=== PATIENT | male | born 1955 | race Caucasian/White ===

== ENCOUNTER 2019-09-10 11:41 | Emergency (ER) | payer OTHER, SELFPAY ==
[2019-09-10 11:44] VITALS: BP 166/86; PULSE 70; RESP 16; TEMP 36.8; O2SAT 99
--- NOTE | 2019-09-10 12:19 | ED.EYEPROB ---
HPI - Eye Problem General Chief complaint: Eye Problems Stated complaint: eye issue Time Seen by Provider: 09/10/19 12:14 Source: patient and family Mode of arrival: ambulatory Limitations: no limitations History of Present Illness HPI Narrative: A 64 y/o male pt presents to the ED, with c/o lt eye pain that began this morning when he woke up. Pt states that when he went to bed last night it was fine and upon waking up he felt an intermittent dull ache above his lt eye that has now migrated into his lt eye. He states that he has a cataract in his lt eye and that he has not had vision in this eye for 15 years, but he is able to detect light. He notes that when the pain first began, he noticed a flickering of light in the corner of his lt eye that occurred about 7 times. Family at bedside states that the eye looks more red and swollen than normal. Pt denies getting anything in his eye, however he states that his lt eye feels irritated. He notes that he feels nauseous, but denies any new onset of cough, tinnitus, rhinorrhea, sore throat, fever or any recent illness. Pt states that it has been several years since he last saw an dressmaker or tailor. chief complaint: eye pain Onset (ago): hour(s) Onset description: awoke with symptoms Duration: intermittent Location: left eye Eye Symptoms: redness and pain Place: home Mechanism: none Severity: severe If Pain, Quality: aching (dull) Context: other (cataract, loss of vision in lt eye x 15 years) Associated symptoms: other (nausea) Related Data Home Medications Medication Instructions Recorded Confirmed allopurinol 09/10/19 aspirin 325 mg PO DAILY 09/10/19 atorvastatin 09/10/19 famotidine 09/10/19 metoprolol succinate PO 09/10/19 potassium citrate PO 09/10/19 propylthiouracil 09/10/19 09/10/19 Allergies Allergy/AdvReac Type Severity Reaction Status Date / Time No Known Allergies Allergy Verified 09/10/19 11:47 Review of Systems Review of Systems: All systems reviewed & are unremarkable except as noted in HPI and below Constitutional: Constitutional: Denies fever(s) Eyes: Eyes: Reports irritation (redness and swelling to lt eye), Reports loss of vision (chronic x 15 years), Reports eye pain (dull ache migrating from above lt eye to lt eye) and Reports seeing flashes (lt eye) ENT: Denies nasal discharge, Denies tinnitus and Denies sore throat Respiratory: Respiratory: Denies cough Gastrointestinal: Gastrointestinal: Reports nausea PMFSH Past Medical History Medical History (Updated 09/10/19 @ 13:32 by Timi Cohen MD) Cataract, left eye Medical history unknown Surgical History Surgical History (Updated 09/10/19 @ 13:05 by [employer]) Surgical history unknown Social History Social History (Updated 09/10/19 @ 13:05 by [employer]) Smoking status: Unknown if ever smoked Gender identity (if verbalized by the patient): Male Exam Const: General: no acute distress and alert Orientation/consciousness: patient oriented x3 HENMT: Head: normal to inspection Eyes: Alignment and Position: alignment normal Periorbital: periorbital findings normal Eyelids: eyelids normal Conjunctivae: conjunctival abnormality left conjunctival injection diffuse Cornea: corneas abnormal on the left fluorescein used and diffuse opacification Other: IOP L: 56 R: 14 Neck: Neck: normal visual inspection Resp: Effort & Inspection: normal respiratory effort Skin: General skin exam: normal color Neuro: General: patient oriented x3, moves all extremities and no focal motor deficits Speech: normal speech Extrem: General: normal to inspection Course Consultations Consultation #1: Discussed case with Dr. Leong, dressmaker or tailor at [facility]. Recommends starting pt on Timolol and transferring to [facility] ED. Date: 09/10/19 Time: 12:46 Consultation #2: Discussed case with Dr. Nguyen, EDP at [facility]. Accept
[2019-09-10] MEDS: TIMOLOL MALEATE 0.5% OP SOLN 5 ML BTL 1 DROP LEFT EYE (13:16)
[2019-09-10] MEDS: ACETAZOLAMIDE 250 MG TABLET 500 MG PO (13:52)
== END 2019-09-10 14:04 | disposition short-term general hospital (02) ==
PROVIDERS: Emergency Provider Emergency Medicine
DX: H40.9 Unspecified glaucoma (principal); H26.9 Unspecified cataract
CPT/HCPCS: 99282; A9270

== ENCOUNTER 2019-12-26 14:20 | Outpatient (CLI) | payer OTHER, SELFPAY ==
[2019-12-26 14:55] LABS: Basophils Absolute Auto 0.1 K/mm3 (0.0-0.1); Eosinophils Absolute Auto 0.2 K/mm3 (0-0.3); Hematocrit 47.6 % (42.0-52.0); Hemoglobin 16.3 g/dL (14.0-18.0); Immature Granulocyte Absolute 0.01 K/mm3 (0.00-0.031); Immature Granulocyte Percent A 0.2 % (0-0.5); Lymphocytes Absolute Auto 2.04 K/mm3 (0.9-3.2); Lymphocytes Percent Auto 39.2 % (18.3-44.2); Mean Corpuscular HGB Conc 34.2 g/dl (32-36); Mean Corpuscular Hemoglobin 28.9 pg (26-34); Mean Corpuscular Volume 84.4 fl (80-100); Mean Platelet Volume 9.7 fl (7.4-10.4); Monocytes Absolute Auto 0.4 K/mm3 (0.1-0.6); Monocytes Percent Auto 8.3 % (2.6-8.5); Neutrophils Absolute Auto 2.5 K/mm3 (1.3-6.7); Neutrophils Percent Auto 47.3 % (45.5-73.1); Platelet Count Result 187 k/mm3 (150-375); Red Blood Count 5.64 M/mm3 (4.6-6.20); Red Cell Distribution Width 12.9 % (11.5-14.5); White Blood Count 5.2 K/mm3 (4.5-10.0)
[2019-12-26 15:07] LABS: Alanine Aminotransferase 43 U/L (4-50); Albumin Level 4.3 g/dL (3.5-5.1); Alkaline Phosphatase 128 U/L (38-126); Aspartate Amino Transferase 32 U/L (17-59); Blood Urea Nitrogen 17 mg/dL (9-20); Calcium 9.2 mg/dL (8.4-10.2); Carbon Dioxide 28 mmol/L (22-30); Chloride 106 mmol/L (98-107); Cholesterol 142 mg/dL (0-200); Estimated Glomerular Filt Rate > 60; Glucose 111 mg/dL (75-110); HDL Direct 28 mg/dL; Potassium 4.1 mmol/L (3.4-5.0); Sodium 140 mmol/L (137-145); Triglycerides 137 mg/dL (<150)
[2019-12-26 15:18] LABS: LDL Cholesterol Direct 82 mg/dL
[2019-12-26 15:26] LABS: Add Urine Microscopic? YES; Appearance Urine Clear (Clear); Bilirubin Urine Negative (Negative); Blood Urine 1+ (Negative); Color Urine Yellow (Yellow); Glucose Urine UA 1+ mg/dL (Negative); Ketones Urine Negative (Negative); Leukocyte Esterase Ur Negative LEU/UL (NEGATIVE); Mucus Urine Rare /lpf; Nitrate Urine Negative (Negative); Protein Urine Negative (Negative); RBC Urine 0-2 /hpf (0-2); Squamous Epithelial Cell Urine Rare /hpf (Few); Urobilinogen Urine Negative mg/dL (<2.0); WBC Urine 0-3 /hpf (0-3)
[2019-12-26 15:38] LABS: Prostate Specific Antigen 1.5 ng/mL (< OR = 4.0)
[2019-12-26 15:43] LABS: Erythrocyte Sedimentation Rate 11 mm/hr (0-20)
[2019-12-26 17:56] LABS: Free T4 Free Thyroxine Reflex 0.89 ng/dL (0.78-2.19)
[2019-12-26 18:54] LABS: Total Triiodothyronine (T3) 1.79 NG/ML (0.97-1.69)
== END 2019-12-26 14:21 | disposition home or self-care (01) ==
PROVIDERS: PCP Internal Medicine; Visit Provider Internal Medicine
DX: E05.00 Thyrotoxicosis with diffuse goiter without thyrotoxic crisis or storm (principal); E55.9 Vitamin D deficiency, unspecified; M10.9 Gout, unspecified; Z12.5 Encounter for screening for malignant neoplasm of prostate; Z12.31 Encounter for screening mammogram for malignant neoplasm of breast; Z13.220 Encounter for screening for lipoid disorders; Z13.228 Encounter for screening for other metabolic disorders
CPT/HCPCS: 36415; 80053; 80061; 81001; 82306; 84153; 84439; 84443; 84480; 85025; 85652; G0103

== ENCOUNTER 2024-04-10 18:05 | Emergency (ER) | payer MEDICARE, SELFPAY ==
--- NOTE | ~2024-04-10 | XR_ITS ---
XR chest 1V portable Ordering provider: Manuel Martinez MD History: 69 years Male with . palpitations . Comparison: None. FINDINGS: MEDIASTINUM: The cardiac silhouette is not enlarged. Sliding hiatus hernia. LUNGS: No infiltrates, effusions or pneumothorax. OTHER: No free air under the diaphragm. IMPRESSION: No acute cardiopulmonary pathology. Reviewed, dictated and finalized at location A.
--- NOTE | 2024-04-10 18:19 | ECG_ITS ---
Test Date: 2024-04-10 18:23:06 Measurements Intervals [place] Rate: 77 P: 25 [place]: 148 QRS: 20 QRSD: 85 T: 65 QT: 354 QTc: 401 Interpretive Statements SINUS RHYTHM INCOMPLETE RIGHT BUNDLE BRANCH BLOCK ST ELEVATION IN ANT/INF LEADS- PROBABLY EARLY REPOLARIZATION BASELINE ARTIFACT- I, II, III, AVR, AVL, AVF BORDERLINE ECG No previous ECG available for comparison Electronically Signed On 04-10-2024 20:21:22 CDT by Amilcar Cruz D.O.
[2024-04-10 18:24] VITALS: BP 142/92; PULSE 77; RESP 18; TEMP 36.8; O2SAT 97
[2024-04-10 21:30] VITALS: PULSE 74
[2024-04-10 21:34] VITALS: O2SAT 100
--- NOTE | 2024-04-10 21:48 | ED.ARRPALP ---
HPI - Arrhythmia/Palpitations General Chief Complaint: Arrhythmia/Palpitations Stated Complaint: palpitations Time Seen by Provider: 04/10/24 21:16 History of Present Illness HPI narrative: 69-year-old male with a past medical history significant for atrial fibrillation rate controlled on metoprolol. He presents to the emergency department today with chest fluttering, palpitations sensations earlier today. He states that there presently asymptomatic he does not feel them anymore. Last for several seconds. Was concerned that he normally does not feel his atrial fibrillation and want to get evaluated. Was previously on a Holter monitor with his machinist supervisor outside earlier this year which did find several beats of AFib intermittently but nothing concerning requiring interventions according to the patient. Presently patient is asymptomatic and denies any nausea, vomiting, chest pain, shortness a breath, palpitations, back pain, abdominal pain, syncope or presyncope symptoms. Was otherwise in his normal state of health denies any recent injuries, illnesses or infections. Related Data Home Medications Medication Instructions Recorded Confirmed allopurinol 100 mg tablet 09/10/19 aspirin 325 mg tablet 325 mg PO DAILY 09/10/19 atorvastatin 20 mg tablet 09/10/19 famotidine 20 mg tablet 09/10/19 metoprolol succinate 200 mg PO 09/10/19 tablet,extended release 24 hr potassium citrate 15 mEq (1,620 PO 09/10/19 mg) tablet,extended release propylthiouracil 50 mg tablet 09/10/19 09/10/19 Allergies Allergy/AdvReac Type Severity Reaction Status Date / Time No Known Allergies Allergy Verified 09/10/19 11:47 Review of Systems Review of Systems: As reviewed [facility] Past Medical History Medical History Cataract, left eye Medical history unknown Surgical History Surgical History Surgical history unknown Social History Social History Smoking status: Unknown if ever smoked Gender identity (if verbalized by the patient): Male Exam Narrative: GENERAL: [Well-appearing, well-nourished, and in no acute distress.] HEAD: [Normocephalic, atraumatic.] EYES: [PERRLA and EOMI.] ENT: Nares clear, no rhinorrhea or epistaxis. Mucous membranes moist. NECK: Supple. CHEST: [Clear to auscultation. No respiratory distress.] HEART: [Regular rate and rhythm]. No murmur heard. [Normal peripheral pulses.] ABDOMEN: [Soft, nondistended], [nontender], [No rigidity or guarding] EXTREMITIES: Normal range of motion. [No edema.] SKIN: Warm, dry, no rash. NEURO: [No focal deficits]. Alert and oriented [x3.] PSYCH: [Normal mood and affect.] Course Vital Signs Vital signs: Vital Signs Temperature 36.8 C 04/10/24 18:24 Pulse Rate 77 04/10/24 18:24 Respiratory Rate 18 04/10/24 18:24 Blood Pressure 142/92 H 04/10/24 18:24 Pulse Oximetry 97 04/10/24 18:24 Oxygen Delivery Room Air 04/10/24 18:24 Temperature 36.8 C 04/10/24 18:24 Pulse Rate 74 04/10/24 22:01 Respiratory Rate 16 04/10/24 22:01 Blood Pressure 128/79 04/10/24 22:01 Pulse Oximetry 97 04/10/24 22:01 Oxygen Delivery Room Air 04/10/24 21:34 MDM - Arrhythmia/Palpitations MDM Narrative Medical decision making narrative: 69-year-old male with a history of rate controlled AFib on metoprolol. Not on any blood thinners aside from a full dose aspirin every day. Presents today with palpitations sensations that have since stopped. He states he thinks it might have been in AFib flutter but presently he has no fluttering, chest pain, shortness a breath or nausea. Was asymptomatic aside from the fluttering sensation with this occurred earlier today. Has normal reassuring vital signs with any tachycardia, fever, hypoxia or significant blood
[2024-04-10 22:01] VITALS: BP 128/79; PULSE 74; RESP 16; O2SAT 97
[2024-04-10 22:14] LABS: Basophils Percent Auto 0.6 % (0.2-1.2); Eosinophils Absolute Auto 0.1 K/mm3 (0-0.3); Hematocrit 43.8 % (42.0-52.0); Hemoglobin 15.1 g/dL (14.0-18.0); Immature Granulocyte Absolute 0.01 K/mm3 (0.00-0.031); Immature Granulocyte Percent A 0.2 % (0-0.5); Immature Platelet Fraction Pct 2.5 % (0.9-11.2); Lymphocytes Absolute Auto 1.81 K/mm3 (0.9-3.2); Lymphocytes Percent Auto 36.1 % (18.3-44.2); Mean Corpuscular HGB Conc 34.5 g/dl (32-36); Mean Corpuscular Hemoglobin 29.9 pg (26-34); Mean Corpuscular Volume 86.7 fl (80-100); Mean Platelet Volume 9.9 fl (7.4-10.4); Monocytes Absolute Auto 0.5 K/mm3 (0.1-0.6); Monocytes Percent Auto 9.4 % (2.6-8.5); Neutrophils Absolute Auto 2.6 K/mm3 (1.3-6.7); Neutrophils Percent Auto 51.7 % (45.5-73.1); Platelet Count Result 150 k/mm3 (150-375); Red Blood Count 5.05 M/mm3 (4.6-6.20); Red Cell Distribution Width 13.5 % (11.5-14.5)
[2024-04-10 22:22] LABS: Alanine Aminotransferase 34 U/L (6-50); Albumin Level 4.1 g/dL (3.5-5.1); Alkaline Phosphatase 98 U/L (38-126); Anion Gap 8 mmol/L (4-12); Aspartate Amino Transferase 32 U/L (17-59); Bilirubin,Total 0.8 mg/dL (0.2-1.3); Blood Urea Nitrogen 31 mg/dL (9-20); Calcium 8.7 mg/dL (8.4-10.2); Carbon Dioxide 26 mmol/L (22-30); Chloride 107 mmol/L (98-107); Estimated CRCL calculation 39 ml/min; Estimated Glomerular Filt Rate 38; Glucose 107 mg/dL (65-110); Lipase 72 U/L (23-300); Potassium 4.6 mmol/L (3.4-5.0); Sodium 141 mmol/L (137-145)
[2024-04-10 22:30] LABS: Partial Thromboplastin Time 28.7 Seconds (22.3-36.8); Prothrombin Time 13.4 Seconds (11.1-14.7)
[2024-04-10 22:33] LABS: Troponin I < 0.012 ng/mL (0.000-0.034)
[2024-04-10] MEDS: LACTATED RINGERS 1,000 ML 999 ML IV CONT (23:28)
[2024-04-11 00:20] VITALS: BP 137/85; PULSE 74; RESP 16; O2SAT 100
--- NOTE | 2024-04-13 10:48 | PC.NURSE ---
LATE ENTRY This note is being entered to document information to the patient's record. The following information was omitted on [04/11/24], by [Lisa Corona RN]. the lactated ringers were stopped on 04/11/24 at 0021
== END 2024-04-11 00:21 | disposition home or self-care (01) ==
PROVIDERS: Emergency Provider Student in an Organized Health Care Education/Training Program; PCP Internal Medicine
DX: R00.2 Palpitations (principal); N17.9 Acute kidney failure, unspecified; Z79.82 Long term (current) use of aspirin
CPT/HCPCS: 36415; 71045; 80053; 83690; 84484; 85025; 85055; 85610; 85730; 93005; 96360; 99284; J7120